=== PATIENT | female | born 1965 | race Caucasian/White ===

== ENCOUNTER → 2018-03-01 13:07 | Outpatient (CLI) | payer MEDICARE, OTHER, SELFPAY ==
--- NOTE | 2018-03-01 | DI.CT.S_ITS ---
PROCEDURE: CT CHEST W CON INDICATIONS: LUNG CANCER,ANAL CANCER TECHNIQUE: After the administration of intravenous contrast, 5 mm thick sections acquired from the pulmonary apices to the posterior costophrenic angles. 7 mm thick coronal and sagittal MIP reformats were acquired. For radiation dose reduction, the following was used: automated exposure control, adjustment of mA and/or kV according to patient size. COMPARISON: [facility], CT, THORAX WITH CONTRAST, 09/04/2014, 11:14. [facility], CT, CHEST/ABD/PEL WITH CONTRAST, 12/09/2015, 15:22. [facility], CT, CHEST/ABDOMEN WITH CONTRAST, 12/13/2014, 11:13. Outside Facility, , CT THORAX/ABDOMEN/PELVIS WITH CONTRAST, 01/27/2018, 8:57. FINDINGS: Image quality: Excellent. Lungs and pleura: There is a moderately sized right sided pleural effusion seen, with overlying atelectasis. Stable volume loss can be seen involving the right lung. There is a focal pleural nodule seen involving the right lower lobe, as on series 3 image 44, which measures 1 cm. This is increased in size compared to the prior examination. Stable subcentimeter soft tissue nodules can be seen involving the left lower lobe. No pneumothorax is seen. Mediastinum: Heart size is normal. No pericardial effusion. No mediastinal or hilar adenopathy by size criteria. Thoracic aorta and central pulmonary arteries are normal in size. Esophagus is normal in caliber. No hiatal hernia. Bones and chest wall: No suspicious bony lesions. No vertebral body compression fractures. No axillary or supraclavicular adenopathy by size criteria. Thyroid gland is small in size. Abdomen: Visualized upper abdominal solid organs appear normal. Upper abdominal bowel loops are normal in caliber. IMPRESSION: Stable findings of a moderately sized right-sided pleural effusion with overlying atelectasis. There is volume loss within the right lung. 1 cm focal pleural nodule involving the right lower lobe, which is felt most likely to be related to atelectasis. Stable subcentimeter left lower lobe pulmonary nodules. Dictated by: Finesse Olivares M.D. on 03/01/2018 at 13:39 Approved by: Finesse Olivares M.D. on 03/01/2018 at 13:44
== END ==
PROVIDERS: PCP Internal Medicine Critical Care Medicine; Visit Provider Internal Medicine Critical Care Medicine
DX: C34.90 Malignant neoplasm of unspecified part of unspecified bronchus or lung (principal); C21.0 Malignant neoplasm of anus, unspecified; R91.1 Solitary pulmonary nodule
CPT/HCPCS: 71260; Q9967